=== PATIENT | male | born 1965 | race African-American/Black ===

== ENCOUNTER 2019-01-28 21:20 | Emergency (ER) | payer OTHER | END 2019-01-28 21:48 | disposition left against medical advice (07) | LOC: MADERS 21:20 | DX: R07.9 Chest pain, unspecified (principal); I10 Essential (primary) hypertension; M19.90 Unspecified osteoarthritis, unspecified site; G47.30 Sleep apnea, unspecified; J44.9 Chronic obstructive pulmonary disease, unspecified | CPT/HCPCS: 99284 ==